=== PATIENT | male | born 1985 | race Hispanic/Latino ===

== ENCOUNTER 2018-12-24 10:53 | Emergency (ER) | payer SELFPAY ==
[~2018-12-24] VITALS: Ht 167.6 cm; Wt 92.5 kg
--- NOTE | 2018-12-24 13:21 | NUR ---
EVALUATED BY DR. HAWKINS IN TRIAGE
[2018-12-24] MEDS ORDERED: KETOROLAC TROMETHAMINE 30 MG/ML VIAL IV STA (13:24)
[2018-12-24] MEDS ORDERED: ONDANSETRON HCL INJ 2MG/ML 2ML 2 MG/ML VIAL IV STA (13:24)
[2018-12-24] MEDS ORDERED: SODIUM CHLORIDE 0.9% 1000ML 1,000 ML IV STA ×2 (13:24)
[2018-12-24 13:57] LABS: BASOPHILS % 0.4 % (0.0-1.0); EOSINOPHILS # (AUTO) 0.1 (0.0-0.4); EOSINOPHILS % 0.8 % (0.0-6.0); HEMOGLOBIN 14.4 g/dL (14.0-18.0); LYMPHOCYTES # (AUTO) 2.4 (1.0-3.2); LYMPHOCYTES % 23.9 % (18.0-39.1); MEAN CORPUSCULAR HEMOGLOBIN 31.5 pg (28-32); MEAN CORPUSCULAR HGB CONC 34.3 g/dL (31-35); MEAN CORPUSCULAR VOLUME 91.9 fL (81-99); MONOCYTES # (AUTO) 0.8 (0.2-0.8); MONOCYTES % 8.3 % (4.4-11.3); NEUTROPHILS # (AUTO) 6.7 (2.1-6.9); NEUTROPHILS % 66.2 % (38.7-80.0); PLATELET COUNT 276 x10e3/uL (140-360); RED BLOOD COUNT 4.57 x10e6/uL (4.3-5.7); RED CELL DISTRIBUTION WIDTH 13.7 % (11.7-14.4)
[2018-12-24 14:11] LABS: BILIRUBIN,URINE NEGATIVE (NEGATIVE); CLARITY,URINE CLEAR (CLEAR); COLOR,URINE YELLOW (YELLOW); KETONES,URINE NEGATIVE (NEGATIVE); LEUKOCYTE ESTERASE ,URINE NEGATIVE (NEGATIVE); NITRITE,URINE NEGATIVE (NEGATIVE); PROTEIN,URINE DIPSTICK NEGATIVE (NEGATIVE); URINE UROBILINOGEN 0.2 mg/dL (0.2 - 1)
[2018-12-24 14:20] LABS: ALANINE AMINOTRANSFERASE 24 IU/L (0-55); ALBUMIN 4.3 g/dL (3.5-5.0); ALBUMIN/GLOBULIN RATIO 1.2 (0.8-2.0); ALKALINE PHOSPHATASE 84 IU/L (40-150); ANION GAP 15.1 mmol/L (8-16); BLOOD UREA NITROGEN 15 mg/dL (7-26); BUN/CREATININE RATIO 21 (6-25); CALCIUM 9.6 mg/dL (8.4-10.2); CARBON DIOXIDE 25 mmol/L (22-29); CHLORIDE 102 mmol/L (98-107); CREATININE, SERUM 0.72 mg/dL (0.72-1.25); EST GLOMERULAR FILTRATION RATE > 60 ML/MIN (60-); GLUCOSE 97 mg/dL (74-118); LIPASE 21 U/L (8-78); POTASSIUM 4.1 mmol/L (3.5-5.1); SODIUM 138 mmol/L (136-145)
[2018-12-24] MEDS ORDERED: IOPAMIDOL 370 MG/ML 200 ML INFUS..BTL INJ ONE (14:35)
[2018-12-24] MEDS ORDERED: SODIUM CHLORIDE 0.9% 50ML 50 ML ONE (14:35)
[2018-12-24 14:36] LABS: BACTERIA,URINE RARE /HPF; MUCUS,URINE FEW (RARE)
--- NOTE | 2018-12-24 15:53 | Diagnostic Imaging Report ---
CT of the abdomen and pelvis, with contrast, 12/24/2018. History: Right lower quadrant pain, diarrhea. Comparison: None available. Technique: Multidetector CT scanning of the abdomen and pelvis was performed from the level of the lung bases to the inferior pubic rami after intravenous administration of contrast. Coronal and sagittal multiplanar reformations were obtained. RADIATION DOSE: Total DLP: 604 mGy*cm Dose modulation, iterative reconstruction, and/or weight based adjustment of the mA/kV was utilized to reduce the radiation dose to as low as reasonably achievable. Discussion: LUNG BASES: No visualized abnormalities. ABDOMEN: The liver, gallbladder, biliary tree, spleen, pancreas, adrenal glands, and kidneys are normal. The hepatic vein, portal vein, and splenic vein are patent. The abdominal aorta is within normal limits for size. Evaluation of bowel is limited without oral contrast. There is no bowel dilatation. The appendix is visualized and is normal. There is no evidence of free fluid. Multiple subcentimeter retroperitoneal aortocaval and left para-aortic lymph nodes are present. PELVIS: Several enlarged right inguinal lymph nodes are present, the largest measuring 1.7 x 1.3 cm. Multiple enlarged right iliac nodes are also present, the largest measuring 1.6 x 2.9 cm. The bladder, prostate, and seminal vesicles are normal in appearance. There is no evidence of free fluid. BONES AND SOFT TISSUES: Degenerative changes are present throughout the lumbar spine without evidence of lytic or sclerotic lesion. IMPRESSION: Right inguinal and iliac adenopathy, concerning for lymphoma versus metastatic disease. Recommend testicular ultrasound. Signed by: Ajay Nguyễn on 12/24/2018 3:49 PM
--- NOTE | 2018-12-24 18:09 | Diagnostic Imaging Report ---
Testicular ultrasound, 12/24/2018. History: Right groin pain, abnormal CT. Comparison: CT from earlier today. Discussion: Evaluation of the scrotum was performed in the transverse and longitudinal planes. Color Doppler and spectral wave form analysis was performed bilaterally. The testes are normal in size and echogenicity bilaterally, measuring 3.7 x 2.3 x 3.3 cm on the right and 4.0 x 2.2 x 3.0 cm on the left. There is no evidence of a mass. Normal and symmetrical flow is present within both testes. Small bilateral hydroceles are noted. The epididymi are normal bilaterally. Right inguinal enlarged lymph nodes are present, the largest measuring 3.0 x 1.1 cm. No adenopathy is seen on the left. IMPRESSION: 1. Normal testes bilaterally. Small bilateral hydroceles are noted. 2. Right inguinal adenopathy. These may be sampled with ultrasound guidance. Signed by: Ajay Nguyễn on 12/24/2018 6:05 PM
[2018-12-24] MEDS ORDERED: SODIUM CHLORIDE 0.9% 1000ML 1,000 ML ONE (18:44)
[2018-12-24] MEDS ORDERED: HYDROCODONE/APAP 10MG-325MG TAB PO NR (19:00)
[2018-12-24 19:28] VITALS: BP 117/74
== END 2018-12-24 19:30 | disposition home or self-care (01) ==
LOC: ER 10:58
DX: R10.31 Right lower quadrant pain (principal); L04.3 Acute lymphadenitis of lower limb
CPT/HCPCS: 36415; 74177; 76870; 80053; 81001; 83690; 85025; 87086; 93976; 99284; J1885; J2405; J7030; Q9967